=== PATIENT | male | born 1990 | race Caucasian/White ===

== ENCOUNTER 2017-04-15 | Emergency (ER) | payer OTHER ==
[~2017-04-15] VITALS: Ht 182.9 cm; Wt 86.4 kg
[2017-04-15 00:28] VITALS: BP 139/89
[2017-04-15] MEDS ORDERED: NORCOTAB PO (05:28)
[2017-04-15] MEDS ORDERED: NORCO 5/325MG TABLET (BULK FOR ED) PO ONE (05:30)
== END 2017-04-15 05:42 | disposition home or self-care (01) ==
LOC: M ED
DX: M79.672 Pain in left foot (principal); Z88.0 Allergy status to penicillin

== ENCOUNTER 2017-09-20 16:00 | Outpatient (RCR) | payer SELFPAY | END 2017-10-10 | LOC: M OUTALCOH 16:00 | DX: F15.20 Other stimulant dependence, uncomplicated (principal); F17.200 Nicotine dependence, unspecified, uncomplicated ==

== ENCOUNTER 2017-10-11 13:16 | Outpatient (RCR) | payer BC, SELFPAY | END 2017-11-07 | disposition still patient (30) | LOC: M OUTALCOH 13:16 | DX: F15.20 Other stimulant dependence, uncomplicated (principal); F17.200 Nicotine dependence, unspecified, uncomplicated ==

== ENCOUNTER 2017-11-15 14:08 | Outpatient (RCR) | payer SELFPAY | END 2017-12-08 | LOC: M OUTALCOH 14:08 | DX: F15.20 Other stimulant dependence, uncomplicated (principal); F17.200 Nicotine dependence, unspecified, uncomplicated ==